=== PATIENT | female | born 1970 | race American Indian/Alaskan Native ===

== ENCOUNTER 2017-04-15 21:26 | Emergency (ER) | payer BC, OTHER ==
[~2017-04-15] VITALS: Ht 165.1 cm; Wt 98.0 kg
[~2017-04-15 21:26] MED LIST: ANTACID200 MG PO; FOLGARD TABLET1 EAC1 PO; PRENATAL-FOLIC1 EACH PO; TRAMADOL HCL50 MG PO; VALIUM5 MG PO; VITAMIN D2000 UNI1 PO
[2017-04-15] MEDS ORDERED: ADDERALL 20 MG20 MG PO (21:38)
[2017-04-15] MEDS ORDERED: IBUPROFEN400 MG PO (21:38)
[2017-04-15] MEDS ORDERED: ACETAMINOPHEN325 M2 PO (21:39)
[2017-04-15] MEDS ORDERED: NORCO 5-325 TA1 EACH PO (22:14)
[2017-04-15] MEDS ORDERED: KEFLEX500 MG PO (22:14)
== END 2017-04-15 22:22 | disposition home or self-care (01) ==
LOC: ED 21:26
DX: K04.7 Periapical abscess without sinus (principal); Z88.5 Allergy status to narcotic agent; Z91.018 Allergy to other foods; Z88.8 Allergy status to other drugs, medicaments and biological substances; Z79.899 Other long term (current) drug therapy
CPT/HCPCS: 99283

== ENCOUNTER 2018-06-10 20:31 | Emergency (ER) | payer OTHER ==
[~2018-06-10] VITALS: Ht 165.1 cm; Wt 96.6 kg
[~2018-06-10 20:31] MED LIST changes: +ACETAMINOPHEN325 M2 PO; +ADDERALL 20 MG20 MG PO; +IBUPROFEN400 MG PO; +KEFLEX500 MG PO; +NORCO 5-325 TA1 EACH PO
[2018-06-10] MEDS ORDERED: VENLAFAXINE H37.5 MG PO (21:04)
[2018-06-11] MEDS ORDERED: TRAMADOL HCL50 MG PO (00:31)
[2018-06-11] MEDS ORDERED: CYCLOBENZAPRINE10 MG PO (00:31)
== END 2018-06-11 00:43 | disposition home or self-care (01) ==
LOC: ED 20:31
DX: M54.6 Pain in thoracic spine (principal); Z88.5 Allergy status to narcotic agent; Z91.018 Allergy to other foods; Z91.041 Radiographic dye allergy status; Z79.899 Other long term (current) drug therapy
CPT/HCPCS: 72125; 72128; 96372; 99283; J1885

== ENCOUNTER 2019-10-01 19:45 | Emergency (ER) | payer BC, OTHER ==
[~2019-10-01] VITALS: Ht 165.1 cm; Wt 95.2 kg
[~2019-10-01 19:45] MED LIST changes: +CYCLOBENZAPRINE10 MG PO; +VENLAFAXINE H37.5 MG PO
--- OUTSIDE RECORDS SUMMARY | 2019-10-01 19:50 | XMS ---
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 Camilla has no Care Guidelines for this patient. Roro VISIT COUNT (12 MO.) 1 IMAN Bliss TOTAL 1 NOTE: Visits indicate total known visits. ED/UCC VISIT TRACKING (12 MO.) 10/01/2019 19:47 IMAN [facility] OR TYPE: Emergency COMPLAINT: - HAND PAIN/NON INJURY INPATIENT VISIT TRACKING (12 MO.) No inpatient visits to display in this time frame [email or web address]
== END 2019-10-01 20:09 | disposition home or self-care (01) ==
LOC: ED 19:45
DX: M79.602 Pain in left arm (principal); G89.29 Other chronic pain; F90.9 Attention-deficit hyperactivity disorder, unspecified type; F43.10 Post-traumatic stress disorder, unspecified; Z88.5 Allergy status to narcotic agent; Z91.018 Allergy to other foods; Z91.041 Radiographic dye allergy status; Z79.899 Other long term (current) drug therapy
CPT/HCPCS: 99283

== ENCOUNTER 2022-05-31 09:12 | Emergency (ER) | payer OTHER ==
[~2022-05-31] VITALS: Ht 165.1 cm; Wt 106.1 kg
[2022-05-31] MEDS ORDERED: LIDODERM1 EACH TOP (11:42)
== END 2022-05-31 12:39 | disposition home or self-care (01) ==
LOC: ED 09:12
DX: G44.309 Post-traumatic headache, unspecified, not intractable (principal); Z88.5 Allergy status to narcotic agent; Z91.018 Allergy to other foods; Z88.6 Allergy status to analgesic agent; Z91.041 Radiographic dye allergy status
CPT/HCPCS: 99283

== ENCOUNTER 2025-02-16 12:12 | Emergency (ER) | payer OTHER ==
[~2025-02-16] VITALS: Ht 165.1 cm; Wt 103.7 kg
[~2025-02-16 12:12] MED LIST changes: +LIDODERM1 EACH TOP; +VENTOLIN HFA18 GM INH
[2025-02-16] MEDS ORDERED: DEXTROAMP-AMPHE20 MG PO (12:28)
[2025-02-16] MEDS ORDERED: MEDROXYPROGEST2.5 MG PO (12:29)
[2025-02-16] MEDS ORDERED: ESTRADIOL1 MG PO (12:29)
[2025-02-16] MEDS ORDERED: DIPHTH,PERTUSS(ACELL),TET VAC 0.5 ML SYRINGE IM ONE (13:30)
[2025-02-16 14:19] VITALS: BP 135/86
== END 2025-02-16 14:19 | disposition home or self-care (01) ==
LOC: ED 12:12
DX: S90.852A Superficial foreign body, left foot, initial encounter (principal); F43.10 Post-traumatic stress disorder, unspecified; Z88.5 Allergy status to narcotic agent; Z91.018 Allergy to other foods; W26.8XXA Contact with other sharp object(s), not elsewhere classified, initial encounter
CPT/HCPCS: 73630; 90471; 90715; 99283-25